=== PATIENT | male | born 1965 | race African-American/Black ===

== ENCOUNTER 2023-08-18 11:22 | Emergency (ER) | payer MEDICAID ==
[~2023-08-18] VITALS: Ht 177.8 cm; Wt 85.0 kg
[2023-08-18 11:27] VITALS: O2SAT 99
[2023-08-18 12:18] LABS: BASOPHILS % 0.4 % (0.0-2.0); DIFFERENTIAL COMMENT 0; EOSINOPHILS % 1.7 % (0.0-5.0); HEMATOCRIT. 42.8 % (42.0-52.0); HEMOGLOBIN. 13.9 g/dL (14.0-18.0); LYMPHOCYTES % 25.5 % (20.0-50.0); MEAN CORPUSCULAR HEMOGLOBIN 32.7 pg (28.0-32.0); MEAN CORPUSCULAR HGB CONC 32.6 g/dL (31.0-37.0); MEAN CORPUSCULAR VOLUME 100.5 fL (80.0-94.0); MEAN PLATELET VOLUME 8.6 fl (7.4-10.4); MONOCYTES % 7.6 % (2.0-8.0); NEUTROPHILS % 64.8 % (40.0-76.0); PLATELET 331 x1000/uL (130-400); RED BLOOD CELL COUNT 4.26 mill/uL (4.7-6.1); RED CELL DISTRIBUTION WIDTH 14.6 % (11.6-14.6); WHITE BLOOD COUNT 10.8 x1000/uL (4.5-11.0)
[2023-08-18 12:28] LABS: CHLORIDE 105 mEq/L (98-107); INDEX HEMOLYSI 4 (1-3); INDEX ICTERIC 1 (1-4); INDEX LIPEMIC 1 (1-3); SODIUM 139 mEq/L (136-145)
[2023-08-18 12:29] LABS: PARTIAL THROMBOPLASTIN TIME 27.9 sec (23.4-31.0); PROTHROMBIN TIME 10.6 sec (9.6-11.0)
[2023-08-18 12:46] LABS: POTASSIUM 4.2 mEq/L (3.5-5.1)
[2023-08-18 12:52] LABS: ALANINE AMINOTRANSFERASE 27 IU/L (13-61); ASPARTATE AMINOTRANSFERASE 41 IU/L (15-37); BILIRUBIN TOTAL 0.3 mg/dL (0.1-1.0); CALCIUM 8.5 mg/dL (8.5-10.1); CARBON DIOXIDE 12 mEq/L (21-32); CREATININE 1.4 mg/dL (0.6-1.3); ETHANOL BLOOD 87 mg/dL (<10); GLUCOSE 113 mg/dL (70-105); NT PRO B-TYPE NATRIURETIC PEP 30 pg/mL (5-125); PROTEIN TOTAL 8.1 g/dL (6.0-8.3); TROPONIN I HIGH SENSITIVITY 6 ng/L (<78); UREA NITROGEN BLOOD 24 mg/dL (7-21)
[2023-08-18] MEDS ORDERED: IBUP-1523 MT (14:47)
[2023-08-18] MEDS ORDERED: ACET-2708 MT (14:47)
[2023-08-18] MEDS ORDERED: BACI28OI9 TP (14:47)
[2023-08-18 15:41] VITALS: BP 127/69; PULSE 72; RESP 17; TEMP 98.2
== END 2023-08-18 16:02 | disposition home or self-care (01) ==
LOC: ER 11:22 → EDBD 11:22 → ER 16:02
DX: T40.711A Poisoning by cannabis, accidental (unintentional), initial encounter (principal); X58.XXXA Exposure to other specified factors, initial encounter
CPT/HCPCS: 80053; 80320; 83880; 85025; 85610; 85730; 84484; 36415; 71045; 93005; 99285; Z7610 ×3; G0480

== ENCOUNTER 2023-10-19 23:36 | Emergency (ER) | payer MEDICAID ==
[~2023-10-19] VITALS: Ht 182.9 cm; Wt 75.0 kg
[~2023-10-19 23:36] MED LIST: ACET-2708 MT; BACI28OI9 TP; IBUP-1523 MT
[2023-10-19 23:40] VITALS: TEMP 99.6
[2023-10-19] MEDS ORDERED: MIDAZOLAM HCL 2 MG/2 ML VIAL IM ONE (23:45)
[2023-10-19] MEDS ORDERED: SODIUM CHLORIDE 0.9% 1,000 ML IV ONE (23:45)
[2023-10-20 00:25] VITALS: BP 160/110; PULSE 108; RESP 24; O2SAT 98
== END 2023-10-20 03:45 | disposition home or self-care (01) ==
LOC: ER 23:36
DX: T40.991A Poisoning by other psychodysleptics [hallucinogens], accidental (unintentional), initial encounter (principal); F41.9 Anxiety disorder, unspecified; Y92.89 Other specified places as the place of occurrence of the external cause
CPT/HCPCS: 99283; 96372; J7030; J2250